=== PATIENT | female | born 1940 | race Caucasian/White ===

== ENCOUNTER → 2017-02-12 | Outpatient (CLI) | payer MEDICARE, BC ==
[~2017-02-12] MED LIST: DIAZ5 PO; FISHCAP4 PO; MACR100C2 PO; MULTTAB67 PO; SULF-154 PO
[2017-02-12 11:37] LABS: BLOOD, URINE NEG (NEG); GLUCOSE,URINE NEG (NEG); KETONE, URINE NEG (NEG); MUCUS URINE FEW /lpf (OCC); NITRITE,URINE NEG (NEG); SQUAMOUS EPITHELIAL CELL URINE <1 /hpf (0-5); URINE COLOR LIGHT-YELLOW (YELLW/STRAW)
[2017-02-12 11:38] LABS: AUTOMATED NEUTROPHIL # 3.8 TH/MM3 (1.8-7.7); BASOPHIL # 0.1 TH/MM3 (0-0.2); EOSINOPHIL # 0.2 TH/MM3 (0-0.4); EOSINOPHIL % 2.1 % (0.0-4.0); HEMATOCRIT 42.3 % (35.0-46.0); HEMO FLAGS DIFF FINAL; LYMPH % 39.5 % (9.0-44.0); MEAN CORPUSCULAR HEMOGLOBIN 31.6 PG (27.0-34.0); MEAN CORPUSCULAR HGB CONC 34.4 % (32.0-36.0); MONO % 8.1 % (0.0-8.0); NEUT % 49.3 % (16.0-70.0); PLATELET COUNT 308 TH/MM3 (150-450); RED BLOOD COUNT 4.59 MIL/MM3 (4.00-5.30); RED CELL DISTRIBUTION WIDTH 13.1 % (11.6-17.2); WHITE BLOOD COUNT 7.6 TH/MM3 (4.0-11.0)
[2017-02-12 12:08] LABS: BICARBONATE 29.1 MEQ/L (21.0-32.0); POTASSIUM 4.4 MEQ/L (3.5-5.1)
== END ==
LOC: CPRE 10:21
PROVIDERS: ATTEND Obstetrics & Gynecology
DX: Z01.812 Encounter for preprocedural laboratory examination (principal); N81.9 Female genital prolapse, unspecified
CPT/HCPCS: 36415; 80048; 81001; 85025

== ENCOUNTER 2017-02-20 05:58 | Observation (INO) | payer MEDICARE, BC ==
[~2017-02-20] VITALS: Ht 152.4 cm; Wt 58.4 kg
[~2017-02-20 05:58] MED LIST changes: -DIAZ5 PO; -MACR100C2 PO; -SULF-154 PO
[2017-02-20] MEDS ORDERED: METOPROLOL TARTRATE 25 MG TAB PO PRN (06:45)
[2017-02-20] MEDS ORDERED: POVIDONE IODINE 5% (ANTISEPSIS KIT) 4 APPLICATIONS EACH NARE PRN (06:45)
[2017-02-20] MEDS ORDERED: CHLORHEXIDINE GLUCONATE 2 % 1 PACK (2 CLOTHS) TOPICAL PRN (06:45)
[2017-02-20] MEDS ORDERED: INSULIN HUMAN REGULAR 1,000 UNITS/10 ML VIAL SQ PRN (06:45)
[2017-02-20] MEDS ORDERED: ceFAZolin 2 GM PREMIX 50 ML IV SCH (06:45)
[2017-02-20] MEDS ORDERED: LACTATED RINGER'S 1000 ML IV PRN (06:45)
[2017-02-20] MEDS ORDERED: SODIUM CHLORID 0.9% 500 ML IV PRN (06:45)
[2017-02-20] MEDS ORDERED: ACETAMINOPHEN 1000 MG/100 ML 100 ML IV ONE (06:52)
[2017-02-20] MEDS ORDERED: BUPIVACAINE HCL PF 0.25% 30 ML VIAL ONE (07:05)
[2017-02-20] MEDS ORDERED: ESTROGENS CONJUGATED VAG CREA 15 APPL/30 GM TUBE ONE (07:05)
[2017-02-20] MEDS ORDERED: METHYLENE BLUE 10 MG/ML VIAL IV ONE (09:30)
[2017-02-20] MEDS ORDERED: DO NOT ADM ANY ANTICOAGULANT DRUGS PRN (10:18)
[2017-02-20 10:30] VITALS: O2SAT 100
[2017-02-20] MEDS ORDERED: KETOROLAC TROMETHAMINE 30 MG/ML (IVP) VIAL IVP PRN (10:30)
[2017-02-20] MEDS ORDERED: SODIUM CHLORIDE 0.9% FLUSH 10 ML FLUSH IV FLUSH PRN (10:30)
[2017-02-20] MEDS ORDERED: IBUPROFEN 600 MG TAB PO PRN (10:30)
[2017-02-20] MEDS ORDERED: diphenhydrAMINE HCL 25 MG CAP PO PRN (10:30)
[2017-02-20] MEDS ORDERED: PROMETHAZINE INJ 25 MG/ML VIAL IM PRN (10:30)
[2017-02-20] MEDS ORDERED: oxyCODONE/ACETAMINOPHEN 5 MG/325 MG TAB PO PRN ×2 (10:30)
[2017-02-20] MEDS ORDERED: SODIUM CHLORIDE 0.9% FLUSH 10 ML FLUSH IV FLUSH SCH (10:30)
[2017-02-20] MEDS ORDERED: ONDANSETRON HCL 4 MG/2 ML VIAL IVP PRN (10:30)
[2017-02-20] MEDS ORDERED: MORPHINE SULFATE 2 MG/ML INJ IM PRN (10:30)
[2017-02-20] MEDS: LACTATED RINGER'S 1000 ML INJ 1,000 ML IV SCH (10:40)
--- NOTE | 2017-02-20 11:14 | MP ---
cc: LUTHER TATE M.D. DATE OF SURGERY: 02/20/2017 PREOPERATIVE DIAGNOSIS 1. Symptomatic uterine prolapse. 2. Complete uterine descensus. 3. Pelvic pain. PROCEDURE 1. Exam under anesthesia. 2. Anterior and posterior colporrhaphy. 3. Sacrospinous ligament fixation. 4. Cystourethroscopy. POSTOPERATIVE DIAGNOSIS 1. Symptomatic uterine prolapse. 2. Complete uterine descensus. 3. Pelvic pain. SURGEON Dr. Luther Tate MD. TIMBER SIZER SURGEON Dr. Chay Curiel MD. ANESTHESIA General endotracheal intubation. ESTIMATED BLOOD LOSS 100 cc. DRAINS Ramey to gravity. OPERATIVE FINDINGS The patient had complete uterine prolapse with significant apical defect, grade 2 rectocele and a grade 3 cystocele. The evaluation under anesthesia was notable for the cervix and uterus that were very small and not significant in context of the prolapse. The procedure previously was consented for a vaginal hysterectomy. The hysterectomy portion was changed to just a straight anterior and posterior colporrhaphy with sacrospinous fixation. DETAILS OF PROCEDURE The patient received Ancef two grams prophylactically. She was taken to the operating room in stable condition and underwent general anesthesia with endotracheal intubation without complication. She was placed carefully in the dorsal lithotomy position using candy-cane stirrups. She had sequentials placed on her lower extremities for VTE prophylaxis. After she was prepped and draped a timeout was conducted and agreed by all present in the room. The patient had a Ramey catheter inserted by sterile technique. Exam of the pelvis was described above. Delineation of the defects were identified with the cystocele and rectocele. The dissection was initiated by making an anterior incision, injecting the vaginal tissue subcutaneously with 0.25% plain Marcaine and identifying tissue planes to separate the vesicovaginal space allowing dissection of the cystocele. The cystocele was reduced significantly and plicating sutures of 2-0 Monocryl with a UR-6 needle were used to reduce the defect. The redundant vaginal mucosa was trimmed sharply with Metzenbaum scissors and closing the wound with a running locking suture of 3-0 Vicryl with good result. Clear urine was draining throughout the entire case. Once the anterior compartment was repaired and completed the posterior compartment was identified, injecting the vaginal mucosa with 0.25% plain Marcaine and then making a linear incision starting from the perineal body and then elevating the dissection up approximately 2-3 cm at the cervical junction. Again, the cervix was less than 2 cm, and with palpable cervix and uterus it was less than 3 cm. Previous Pap smear and endometrial biopsy were normal. The dissection allowed identification of the lateral space of the right side of the posterior compartment identifying the sacrospinous ligament. Once the rectocele was dissected a Capio needle telephone directory distributor driver with a 0 Prolene suture was used to secure the sacrospinous ligament with good result. Tension placed on the suture was secure with good integrity. There was no active bleeding or hematoma. The suture was then brought through the apex of the right lateral aspect of the vaginal mucosa [id number] and this was approximately 2-3 cm superior to the cervix. The free suture was then tagged and then the posterior defect was closed in a similar fashion using imbricating sutures of 2-0 Monocryl on a UR-6 needle reducing the defect posteriorly and then closing the vaginal mucosa after trimming the excess redundant tissue with sharp scissors using 3-0 Vicryl suture. Good result was noted. There was no active bleeding or hematoma. Rectal exam confirmed no interruption of the rectal lumen. At this point the vaginal vault was irrigated and then the Prolene suture attached to the sacrospinous ligament was sutured elevating the apex of the vaginal vault to the sacrospinous ligament with good support and integrity. The vaginal vault was again irrigated. There was no active bleeding or hematoma. The Ramey catheter was then removed and a 70-degree cystoscope with normal saline as distention media was used with a video camera. Integrity of the bladder was noted. There was no interruption, no tears, perforation or suture in the bladder. Both ureteral orifices were peristalsing and ejecting urine directly into the bladder without difficulty. No interruption of the ureters was as noted. At the completion of the cystoscopy the cystoscope was removed, draining the fluid from the bladder and then reinserting the Ramey catheter clear fluid was noted. The patient had received methylene blue per IV by the anesthesiologist about 45 minutes before the cystoscope and this was confirmed with visualization of the blue dye in the bladder. The vaginal vault was then packed with a two-inch vaginal packing with Premarin cream. At the completion of the case the patient was extubated and taken to the recovery room on room air. The final count was correct. Luther Tate MD SJMina/ISAURA /10:27 AM /10:43 AM
[2017-02-20] MEDS ORDERED: DEXAMETHASONE SOD PHOS 4 MG/ML VIAL IV ONE (12:00)
[2017-02-20] MEDS ORDERED: NEOSTIGMINE 3 MG/3 ML SYR IV ONE (12:00)
[2017-02-20] MEDS ORDERED: ROCURONIUM INJ 50 MG/5 ML SYRINGE IV PUSH ONE (12:00)
[2017-02-20] MEDS ORDERED: LIDOCAINE HCL 1% PF 5 ML SYRINGE OTHER ONE (12:00)
[2017-02-20] MEDS ORDERED: PHENYLEPH/NS 1000 MCG/10 ML SYR IV ONE (12:00)
[2017-02-20] MEDS ORDERED: LACTATED RINGER'S 1000 ML INJ 1,000 ML IV ONE (12:00)
[2017-02-20] MEDS ORDERED: SUCCINYLCHOLINE CHLORIDE 100 MG/5 ML SYRINGE IV PUSH ONE (12:00)
[2017-02-20] MEDS ORDERED: PROPOFOL 200 MG/20 ML AMP IV ONE (12:00)
[2017-02-20] MEDS ORDERED: KETOROLAC TROMETHAMINE 30 MG/ML (IVP) VIAL IV PUSH ONE (12:00)
[2017-02-20] MEDS ORDERED: ePHEDrine/NS 25 MG/5 ML SYRINGE IV ONE (12:00)
[2017-02-20] MEDS ORDERED: ONDANSETRON HCL 4 MG/2 ML VIAL IV PUSH ONE (12:00)
[2017-02-20] MEDS ORDERED: GLYCOPYRROLATE 1 MG/5 ML SYRINGE IV PUSH ONE (12:00)
[2017-02-20] MEDS: DOCUSATE SODIUM 100 MG CAP PO SCH (13:09)
[2017-02-20 16:15] VITALS: BP 132/74; PULSE 74; RESP 16; O2SAT 97
[2017-02-20 17:30] VITALS: TEMP 98.7
[2017-02-20 21:00] VITALS: BP 140/77; PULSE 78; RESP 18; TEMP 98; O2SAT 98
[2017-02-21 01:00] VITALS: BP 114/65; PULSE 72; RESP 16; TEMP 97.8; O2SAT 97
[2017-02-21] MEDS: LACTATED RINGER'S 1000 ML INJ 1,000 ML IV SCH (02:00)
[2017-02-21 06:49] LABS: AUTOMATED NEUTROPHIL # 8.7 TH/MM3 (1.8-7.7); BASOPHIL % 0.4 % (0.0-2.0); EOSINOPHIL # 0.1 TH/MM3 (0-0.4); EOSINOPHIL % 0.8 % (0.0-4.0); HEMATOCRIT 34.6 % (35.0-46.0); HEMOGLOBIN 11.9 GM/DL (11.6-15.3); LYMPH % 25.2 % (9.0-44.0); LYMPHOCYTE # 3.3 TH/MM3 (1.0-4.8); MEAN CELL VOLUME 92.6 FL (80.0-100.0); MEAN CORPUSCULAR HEMOGLOBIN 31.8 PG (27.0-34.0); MEAN CORPUSCULAR HGB CONC 34.4 % (32.0-36.0); MEAN PLATELET VOLUME 7.5 FL (7.0-11.0); MONO % 6.6 % (0.0-8.0); MONOCYTE # 0.9 TH/MM3 (0-0.9); PLATELET COUNT 251 TH/MM3 (150-450); RED BLOOD COUNT 3.74 MIL/MM3 (4.00-5.30); WHITE BLOOD COUNT 12.9 TH/MM3 (4.0-11.0)
[2017-02-21 07:08] LABS: CREATININE 0.8 MG/DL (0.50-1.00)
[2017-02-21 08:00] VITALS: BP 117/63; PULSE 63; RESP 16; TEMP 97.6; O2SAT 97
--- NOTE | 2017-02-21 08:57 | HHI.PR ---
Subjective Remarks POD#1; s/p A+P repair, Sacrospinous lig. fixation,Doing well, pain is well controlled, eating well. Voided spont. ,no bleeding. Objective Vital Signs Vital Signs Date Time Temp Pulse Resp B/P (MAP) Pulse Ox O2 Delivery O2 Flow Rate FiO2 02/21/17 01:00 97.8 72 16 114/65 (81) 97 02/20/17 21:00 98.0 78 18 140/77 (98) 98 02/20/17 17:30 98.7 02/20/17 16:15 74 16 132/74 (93) 97 02/20/17 11:45 97.9 67 17 124/60 (81) 98 Room Air 02/20/17 11:30 72 18 128/62 (84) 100 02/20/17 11:15 65 12 127/62 (83) 100 02/20/17 11:00 71 13 104/55 (71) 99 02/20/17 10:45 71 15 117/56 (76) 100 02/20/17 10:30 77 11 128/66 (86) 100 Nasal Cannula 2 02/20/17 10:21 97.3 82 16 130/63 (85) 100 Nasal Cannula 2 I/O 02/20/17 02/20/17 02/20/17 02/21/17 02/21/17 02/21/17 07:00 15:00 23:00 07:00 15:00 23:00 Intake Total 1390 ml 2070 ml 1262 ml Output Total 500 ml 1150 ml 2450 ml Balance 890 ml 920 ml -1188 ml Intake Oral 60 ml IV Total 130 ml 2070 ml 1262 ml Other 1200 ml Output Urine Total 450 ml 1150 ml 2450 ml Estimated Blood Loss 50 ml Result Diagram: 02/21/17 0601 02/21/17 0601 Objective Remarks Chest is clear, regular rate and rhythm. Abdomen is soft and non-distended. Incision is clean and dry. Ext no CCE. A/P Assessment and Plan Post Op Day 1 Doing well Home today and return to office in one weeks. Luther Herrera MD Feb 21, 2017 08:57
[2017-02-21] MEDS ORDERED: MACR100C2 PO (08:59)
--- NOTE | 2017-02-21 08:59 | HHI.DCPOC ---
Discharge Care Plan Your Health Problems Are: Fever, temperature>100.4 Pelvic pain Vaginal bleeding Report Symptoms to Your Doctor -Temperature above 100.5 degrees -Redness, of incision or excessive or foul smelling drainage -Unusual pain or calf pain -Increased vaginal bleeding -Painful or difficulty urinating -Feelings of extreme sadness or anxiety after 2 weeks Goals to Promote Your Health * To prevent worsening of your condition and complications * To maintain your health at the optimal level Directions to Meet Your Goals Take your medications as prescribed Follow your dietary instruction Follow activity as directed Ensure plenty of rest for recovery Drink fluids for hydration Keep your appointments as scheduled Take your immunizations and boosters as scheduled If your symptoms worsen call your PCP, if no PCP go to Urgent Care Center or Emergency Room Smoking is Dangerous to Your Health. Avoid second hand smoke Call the 24-hour crisis hotline for domestic abuse at Luther Herrera MD Feb 21, 2017 08:59
[2017-02-21] MEDS: DOCUSATE SODIUM 100 MG CAP PO SCH (09:00)
== END 2017-02-21 10:30 | disposition home or self-care (01) ==
LOC: HSDC 05:58 → HSDI 10:22 → H1EA 12:05
PROVIDERS: ADMIT Obstetrics & Gynecology; ATTEND Obstetrics & Gynecology
DX: N81.4 Uterovaginal prolapse, unspecified (principal); R10.2 Pelvic and perineal pain; R06.89 Other abnormalities of breathing
CPT/HCPCS: 00942; 57260; 57282; 82565; 85025; 86850; 86900; 86901; 94150; G0378; J0131; J0330; J0690; J1100; J1885; J2370; J2405; J2710; J3010; J7120